=== PATIENT | female | born 1940 | race Caucasian/White ===

== ENCOUNTER → 2017-12-11 | Outpatient (CLI) | payer MEDICARE, OTHER ==
--- NOTE | 2017-12-11 20:36 | US ---
EXAM DESCRIPTION: Breast,Right: Ultrasound CLINICAL HISTORY: 77 years[address] calcifications ON CT from outside imaging facility. COMPARISON: Digital 3-D tomosynthesis diagnostic bilateral breast on this visit. TECHNIQUE: Transcutaneous scanning of the upper outer quadrant of the right breast utilizing two-dimensional and Doppler modes. Scanning performed by the neon sign worker and Dr. Patel. FINDINGS: Scanning at the 10:00 position of the right breast, 6 cm from the nipple. Hypoechoic mass measuring 4.4 x 4.5 mm. Minimal posterior enhancement. Parallel orientation. No skin changes. No discrete solid mass or cyst. No parenchymal edema. Surrounding tissue is mostly dense fibroglandular tissue with minimal fatty tissue. IMPRESSION: 1. Bi-Rads Category 2: Benign. 2. Please refer to bilateral diagnostic 3-D tomosynthesis mammographic examination and report on this visit. The FINDINGS and the follow-up plan were reviewed in person with the patient after the examination. Written communication explaining the IMPRESSION and follow-up will be mailed to the patient and referring care provider. Electronically signed by: Kar Patel MD 12/11/2017 8:35 PM PSYCHIATRIC TECHNICIAN Workstation: [id number]
--- NOTE | 2017-12-12 08:30 | MAM ---
EXAM DESCRIPTION: 3D Diagnostic, Bilateral: Digital Mammography CLINICAL HISTORY: [address] years[address] ON [address] SCAN . Soreness around left nipple. Sister with breast cancer. Remote family history of breast cancer. Postmenopausal. Currently on HRT. Bilateral cyst aspirations. Prior left breast benign biopsy.. COMPARISON: Prior CT scan is not available. Right breast targeted ultrasound following this examination. Prior report from CT scan at outside facility is available. TECHNIQUE: Bilateral CC LM MLO projection full-field images, 3-D tomosynthesis digital mammographic technique. Also bilateral synthesized CC MLO LM full-field images. CAD not utilized. FINDINGS: The breast parenchymal density pattern is: Heterogeneously dense breast tissue, which may obscure small masses. No skin thickening or nipple retraction bilateral coarse calcifications. Some calcifications have central radiolucency. Also bilateral microcalcifications. Focal asymmetry at the 932 1000 clock position of the middle third of the right breast approximately 6 cm from the nipple. Appears to be associated with microcalcifications. No mammographic lesions around the left nipple.. No focal, stellate mass or density, focal asymmetry , and no suspicious microcalcifications left breast. ULTRASOUND: Scanning at the 10:00 position of the right breast, 6 cm from the nipple. Hypoechoic mass measuring 4.4 x 4.5 mm. Minimal posterior enhancement. Parallel orientation. No skin changes. No discrete solid mass or cyst. No parenchymal edema. Surrounding tissue is mostly dense fibroglandular tissue with minimal fatty tissue. Small cyst abutting the left nipple otherwise unremarkable with no calcifications or discrete solid mass. IMPRESSION: BI-RADS CATEGORY: 2 - BENIGN FINDINGS. FOLLOW UP: Return to routine digital bilateral screening, one year interval from November 2017. Written communication explaining the IMPRESSION and follow-up, will be mailed to the patient and referring health care provider. According to the [employer], yearly mammograms are recommended starting at age 40 and continuing as long as a woman is in good health. Any breast change noted on a breast self-exam should be reported promptly to the patient's healthcare provider. Breast MRI is recommended for women with an approximately 20-25% or greater lifetime risk of breast cancer, including women with a strong family history of breast or ovarian cancer and women who have been treated for Hodgkin's disease. A negative mammographic report should not delay tissue diagnosis in patients with significant clinical history or physical findings. Extremely dense breast tissue limits the sensitivity of digital mammography. Electronically signed by: Kar Patel MD 12/12/2017 8:28 AM [facility]
== END ==
LOC: MAMMO 09:49
DX: R92.1 Mammographic calcification found on diagnostic imaging of breast (principal)
CPT/HCPCS: 76641; 77066; G0279

== ENCOUNTER 2020-08-27 05:52 | Inpatient (IN) | payer MEDICARE, OTHER ==
--- NOTE | 2020-08-27 06:59 | ED.PDOC ---
History of Present Illness - General Source: patient, RN notes reviewed, Vital Signs reviewed, long-term records Exam Limitations: no limitations - History of Present Illness Initial Comments: Patient is an 80-year-old white female who presents in transfer from an outside facility accepted by Tal Buchanan NP. Patient had recently fractured her left hip and was in rehab. Patient was noted to spike a fever and when tested for Covid was found to be positive. Patient was transferred here per standing agreement. Patient's only complaint at this time is mild fever and body aches. She denies any other symptoms. Timing/Duration: 24 hours Severity: mild Improving Factors: nothing Worsening Factors: nothing Associated Symptoms: fever/chills, other - Body aches <Abdiaziz Angeles - Last Filed: 08/27/20 06:57> <Tomasa Vasquez - Last Filed: 08/27/20 09:19> - General Chief Complaint: General Stated Complaint: COVID+,fever,headache,bodyaches Time Seen by Provider: 08/27/20 06:12 - History of Present Illness Allergies/Adverse Reactions: Allergies NO KNOWN ALLERGY Allergy (Verified 08/27/20 06:36) Review of Systems - Review of Systems Constitutional: States: see HPI, fever. Denies: chills, malaise, weakness EENTM: States: no symptoms reported. Denies: eye pain, blurred vision, double vision Respiratory: States: no symptoms reported. Denies: cough, short of breath Cardiology: States: no symptoms reported. Denies: chest pain, palpitations, syncope Gastrointestinal/Abdominal: States: no symptoms reported. Denies: abdominal pain, diarrhea, nausea, vomiting Genitourinary: States: no symptoms reported. Denies: dysuria, frequency Musculoskeletal: States: see HPI, joint pain. Denies: neck pain Skin: States: no symptoms reported. Denies: change in color, rash Endocrine: States: no symptoms reported. Denies: increased hunger, increased thirst, increased urine Hematologic/Lymphatic: States: no symptoms reported. Denies: blood clots, easy bleeding All other Systems: No Change from Baseline <Abdiaziz Angeles - Last Filed: 08/27/20 06:57> Past Medical History (General) - Patient Medical History Hx Seizures: No Hx Stroke: No Hx Dementia: No Hx Asthma: No Hx of COPD: Yes Hx Cardiac Disorders: Yes - AFib Hx Congestive Heart Failure: Yes Hx Pacemaker: No Hx Hypertension: Yes Hx Thyroid Disease: Yes Hx Diabetes: Yes Hx Gastroesophageal Reflux: Yes Hx Renal Disease: Yes - chronic kidney disease Hx Cancer: No Hx of HIV: No Hx Hepatitis C: No Hx MRSA: No Surgical History: Hysterectomy - Vaccination History Hx Tetanus, Diphtheria Vaccination: Yes Hx Influenza Vaccination: Yes - Social History Hx Tobacco Use: No Hx Alcohol Use: No <Abdiaziz Angeles - Last Filed: 08/27/20 06:57> Family Medical History - Family History Mother Family History: Unknown <Abdiaziz Angeles - Last Filed: 08/27/20 06:57> Physical Exam - Physical Exam General Appearance: Alert, Comfortable, Well Developed, Well Groomed, Well Hydrated, Well Nourished Eye Exam: bilateral normal Ears, Nose, Throat: hearing grossly normal, normal pharynx Neck: non-tender, full range of motion, supple Respiratory: chest non-tender, lungs clear, normal breath sounds, no respiratory distress, no accessory muscle use Cardiovascular/Chest: normal peripheral pulses, regular rate, rhythm, no edema, no gallop, no JVD, no murmur Peripheral Pulses: radial,right: 2+, radial,left: 2+ Gastrointestinal/Abdominal: normal bowel sounds, non tender, soft Back Exam: normal inspection, no CVA tenderness, no vertebral tenderness Extremity: no calf tenderness, other - Patient with mild tenderness to palpation of the left hip. Neurologic: pharmaceutical laboratory technician II-XII nml as tested, no motor/sensory deficits, alert, normal mood/affect, oriented x 3 Skin Exam: normal color, warm/dry Lymphatic: no adenopathy <Abdiaziz Angeles - Last Filed: 08/27/20 06:57> - Physical Exam Comments: Vital Signs - 24 hr 08/27/20 08/27/20 08/27/20 05:55 06:00 06:30 Temperature 100.0 F H Pulse Rate [ 79 71 monitor] Respiratory 20 20 18 Rate Blood Pressure 106/51 89/42 [Left Arm] O2 Sat by Pulse 95 96 Oximetry 08/27/20 08/27/20 08/27/20 07:30 08:00 08:30 Temperature 97.4 F L 97.5 F L Pulse Rate [ 101 H 69 73 monitor] Respiratory 20 16 18 Rate Blood Pressure 80/48 93/59 100/59 [Left Arm] O2 Sat by Pulse 92 L Oximetry <Tomasa Vasquez - Last Filed: 08/27/20 09:19> Progress - Progress Progress: Differential diagnosis: Pneumonia, COVID-19, influenza, sepsis among others. 08/27/20 07:00 Patient's lab work and x-ray readings are pending. Patient will be handed off to the oncoming physician, Dr. Vasquez. Abdiaziz Angeles M.D. #[id number] <Abdiaziz Angeles - Last Filed: 08/27/20 06:57> - Progress Progress: 08/27/20 09:16 The patient is a 80-year-old female sent over from [facility] secondary to acute coronavirus infection. The patient has borderline hypoxia however she is likely always borderline hypoxic due to her COPD. The patient is being given supplemental oxygen primarily at low flow for symptomatic relief only. She is alert and cooperative. No evidence of obvious distress. CT scans of the chest abdomen pelvis are reassuring. No evidence of any pulmonary embolus. She is apparently already taking Xarelto secondary to the hip surgery. White blood cell count is reassuring. The patient is being given a dose of IV dexamethasone here. She also had blood and sputum cultures done. Given the initial report of the chest x-ray Rocephin and azithromycin were also started. Given the patient's advanced age and comorbidities she is going to be treated as an inpatient for this process. Additionally the patient does have low blood pressures she falls asleep. This is apparently not new and has been well- documented at [facility]. This is likely multifactorial including largely due to sedating type medications that she takes at night. She did receive a 500 cc fluid bolus here which did help a little bit. Blood pressures normalized when she wakes up. Admit for continued care and monitoring. Obviously she is positive for coronavirus and appropriate precautions will be taken. tomasa vasquez [id number] - Results/Orders Results/Orders: CTA of the chest shows no evidence of any pulmonary embolus or large vessel acute pathology. Lung valencia are consistent with viral infection. No large lobar consolidative pneumonia. CT scan of abdomen pelvis with contrast shows no evidence of acute pathology otherwise. Chest x-ray shows what may be a small lingular and left lower lobe infiltrate. Laboratory Results - last 24 hr 08/27/20 08/27/20 08/27/20 06:22 06:22 06:22 WBC 6.9 RBC 2.85 L Hgb 8.0 L Hct 25.5 L MCV 89.7 MCH 28.1 MCHC 31.4 L RDW 18.8 H Plt Count 275 MPV 7.0 L Absolute Neuts (auto) 4.60 Absolute Lymphs (auto) 1.30 Absolute Monos (auto) 0.90 H Absolute Eos (auto) 0.10 Absolute Basos (auto) 0.00 Neutrophils % 65.9 Lymphocytes % 18.6 L Monocytes % 13.5 H Eosinophils % 1.4 Basophils % 0.6 PTT (SP) 34.6 H Fibrinogen 346 D-Dimer, Quantitative 2450.0 H* Sodium 136 Potassium 4.3 Chloride 101 Carbon Dioxide 26 Anion Gap 13.3 BUN 21 H Creatinine 1.17 BUN/Creatinine Ratio 17.9 Random Glucose 85 Serum Osmolality 274.2 L Calcium 8.1 L Magnesium 1.6 L Total Bilirubin 0.7 AST 19 ALT 9 L Alkaline Phosphatase 96 LD Total 192 H Creatine Kinase 25 L Troponin I C-Reactive Protein 8.7 H* Serum Total Protein 5.7 L Albumin 2.9 L Globulin 2.8 Albumin/Globulin Ratio 1.0 L 08/27/20 06:22 WBC RBC Hgb Hct MCV MCH MCHC RDW Plt Count MPV Absolute Neuts (auto) Absolute Lymphs (auto) Absolute Monos (auto) Absolute Eos (auto) Absolute Basos (auto) Neutrophils % Lymphocytes % Monocytes % Eosinophils % Basophils % PTT (SP) Fibrinogen D-Dimer, Quantitative Sodium Potassium Chloride Carbon Dioxide Anion Gap BUN Creatinine BUN/Creatinine Ratio Random Glucose Serum Osmolality Calcium Magnesium Total Bilirubin AST ALT Alkaline Phosphatase LD Total Creatine Kinase Troponin I 0.04 C-Reactive Protein Serum Total Protein Albumin Globulin Albumin/Globulin Ratio <Tomasa Vasquez - Last Filed: 08/27/20 09:19> Departure - Departure Time of Disposition: 07:01 Diet: resume usual diet Activity: as per physical therapy <Abdiaziz Angeles - Last Filed: 08/27/20 06:57> <Tomasa Vasquez - Last Filed: 08/27/20 09:19> - Departure Clinical Impression: COVID-19, COPD mixed type Fever Qualifiers: Fever type: unspecified Qualified Code(s): R50.9 - Fever, unspecified Disposition: Admit Patient Condition: Poor Departure Forms: ED Discharge - Pt. Copy, Patient Portal Self Enrollment Referrals: ANDRÉS MANRIQUE [Primary Care Provider] - 1-2 Weeks Decision To Admit - Decistion To Admit Decision to Admit Reason: Medical Nature Decision to Admit Date: 08/27/20 Decision to Admit Time: 09:19 <Tomasa Vasquez - Last Filed: 08/27/20 09:19>
--- NOTE | 2020-08-27 07:12 | RAD ---
CHEST, ONE VIEW XR CLINICAL HISTORY: cough COMPARISON: None. TECHNIQUE: AP Chest. FINDINGS: Patchy infiltrates in the left lower lobe and lingula. Right lung is clear. Lungs are hyperinflated. Heart is upper normal in size. Minimal aortic atherosclerosis. There is biapical pleural thickening. Left chest wall dual-lead pacemaker is intact. IMPRESSION: 1. Left lower lobe and lingula infiltrates. Electronically signed by: Jessica Ga DO 08/27/2020 7:10 AM CDT
[2020-08-27] MEDS ORDERED: SODIUM CHLORIDE 0.9% 500ML 500 ML ONE (07:34)
[2020-08-27] MEDS ORDERED: cefTRIAXone SODIUM 1 GM in SODIUM CHL 0.9% 50ML MIN-BAG+ 50 ML IVPB ONE (08:10)
[2020-08-27] MEDS ORDERED: DEXAMETHASONE INJ 4 MG/ML VIAL IV ONE (08:11)
[2020-08-27] MEDS ORDERED: AZITHROMYCIN IV 500 MG in SODIUM CHLORIDE 0.9% 250ML 250 ML IVPB ONE (08:11)
[2020-08-27] MEDS ORDERED: ACETYLCYSTEIN 20 % 6,000 MG/30 ML VIAL PO ONE (08:11)
--- NOTE | 2020-08-27 09:04 | CT ---
EXAM DESCRIPTION: Abdomen/Pelvis w/Contrast (accession [id number]), CTA Chest (accession [id number]) CLINICAL HISTORY: 80 years Female, covid, immobnilization, ddimer, low bp TECHNIQUE: This exam was performed according to our departmental dose-optimization program, which includes automated exposure control, adjustment of the mA and/or kV according to patient size and/or use of iterative reconstruction technique. This examination was performed according to a CT angiographic (CTA) protocol with 3D post-processing. This involves 3D reconstructions, MIPS, volume rendered images and/or shaded surface rendering. COMPARISON: None at time of initial interpretation. FINDINGS: The thyroid gland is unremarkable. Left chest wall pacemaker. No axillary adenopathy. Normal caliber thoracic aorta. Cardiomegaly. No pericardial effusion. Moderate hiatal hernia. No mediastinal adenopathy. No pulmonary embolus. Trace bilateral pleural effusions. No pneumothorax. Multifocal bilateral peripheral groundglass airspace disease. No focal consolidation. No suspicious pulmonary nodule. Thickening of the mid to distal esophagus. No focal hepatic lesion. No biliary dilatation. The gallbladder is unremarkable. The portal vein is patent. The spleen, pancreas and adrenal glands are unremarkable. Symmetric renal parenchymal enhancement. No hydronephrosis. No urolithiasis. Unremarkable bladder. Scattered colonic diverticula without focal inflammatory change. No evidence of bowel obstruction. No findings to suggest appendicitis. No adenopathy. No focal fluid collection. No free air. Normal caliber abdominal aorta. No acute or suspicious osseous abnormality. Scattered degenerative changes present. IMPRESSION: 1. Multifocal bilateral peripheral groundglass airspace disease which is most likely infectious. Consider viral etiologies. 2. Trace bilateral pleural effusions. 3. Thickening of the mid to distal esophagus. Recommend endoscopy when clinically indicated. Electronically signed by: Hira Hester MD 08/27/2020 9:02 AM CDT
[2020-08-27] MEDS ORDERED: SODIUM CHLORIDE 0.9% 500ML 500 ML IVS ONE (09:46)
--- NOTE | 2020-08-27 10:02 | HP ---
SUPERVISING PHYSICIAN: Robbie De Dios MD CHIEF COMPLAINT: Acute coronavirus infection with hypoxia. HISTORY OF PRESENT ILLNESS: Ms. Gutierrez is an 80-year-old female patient that has been in the Swing Bed Program at [facility]. She sustained a fractured hip back in June and underwent open reduction internal fixation done by Dr. Cortés. She was doing well on the Swing Bed Program, but started having a fever yesterday and some mild hypoxia on room air. Dr. Kar Pringle requested the patient be transferred to [facility] for admission for treatment of COVID infection as they are unable to accommodate patients for treatment of COVID. She was sent to the Emergency Room for evaluation as she does also have a history of multiple comorbidities including chronic obstructive pulmonary disease, congestive heart failure, chronic atrial fibrillation, hypertension, chronic kidney disease, hypothyroidism, Parkinson's and recent complication from diverticulitis and abscess formation that was treated with surgery and antibiotics. She tested positive for COVID infection at [facility]. On examination in the Emergency Room, she was found to be stable showing saturations initially in the ER of 95% on 2 liters nasal cannula. She was a little hypotensive with initial blood pressure of 80/48. She was febrile with a temperature of 100.0. She was given IV fluids in the ER. Additional workup included CT of the abdomen and pelvis which demonstrated multifocal bilateral peripheral ground glass airspace disease. Lab on initial workup showed she was mildly anemic with hemoglobin of 8. Lymphocyte count was low. Coagulation studies showed D-dimer of 2450 with PTT of 34.6. Chemistries showed C-reactive protein of 8.7, creatinine 1.17. Magnesium a little low at 1.6. She was given initial doses of Decadron, Rocephin and azithromycin in the ER and is now going to be admitted for further treatment of COVID pneumonitis. At time of admission, she was in stable condition. PAST MEDICAL HISTORY: 1. Chronic obstructive pulmonary disease. 2. Chronic diastolic congestive heart failure. 3. Intermittent atrial fibrillation on Xarelto. 4. Hypertension. 5. Back pain with previous underlying failed back surgery, lumbar disc disease and osteoarthritis. 6. Chronic kidney disease. 7. Hypothyroidism. 8. Parkinson's. 9. History of diverticulitis with complications due to infection and abscess formation requiring surgery and antibiotics. PAST SURGICAL HISTORY: 1. Laparoscopic procedure for small bowel obstruction. 2. Exploratory laparotomy. 3. Hysterectomy. 3. Coronary artery stent. 4. Open reduction internal fixation of hip fracture in 2020. HOME MEDICATIONS: 1. Citalopram 20 mg daily. 2. Allopurinol 300 mg daily. 3. Ativan 1 mg q.8h. as needed. 4. Gabapentin 200 mg t.i.d. 5. Tramadol 50 mg q.4h. p.r.n. 6. Xarelto 10 mg daily. 7. Senokot 8.6 mg daily. 8. Requip 3 mg at bedtime. 9. Prednisone 5 mg daily. 10. Protonix 40 mg daily. 11. [place] 10/325 as needed q.6h. 12. Zaroxolyn 5 mg p.r.n. 13. Macrodantin 100 mg daily. 14. Lopressor 25 mg b.i.d. 15. Lunesta 2 mg at bedtime. 16. Flexeril 10 mg p.r.n. q.8h. as needed. 17. Albuterol nebulizers 2.5 mg nebulized q.6h. 18. MS Contin 15 mg b.i.d. ALLERGIES: NO KNOWN DRUG ALLERGIES. FAMILY HISTORY: Noncontributory. SOCIAL HISTORY: The patient lives in [place], [place]. She is . She has no history of alcohol, tobacco or illicit drug use. REVIEW OF SYSTEMS: CONSTITUTIONAL: Positive for general malaise, fevers, weakness. HEENT: Negative for headaches, sore throats, earaches, nasal congestion, vision changes. RESPIRATORY: Positive for productive cough with some mild shortness of breath. Denies any wheezing. CARDIOVASCULAR: Negative for chest pain, palpitations, tachycardia or syncopal episodes. GASTROINTESTINAL: Negative for nausea, vomiting, diarrhea or abdominal pain. GENITOURINARY: Negative for dysuria, hematuria, polyuria. MUSCULOSKELETAL: As noted in history of present illness with hip surgery. SKIN: Negative for lesions, rashes, moles or unexplained changes. ENDOCRINE: Negative for increased hunger, thirst or urination. NEUROLOGIC: Negative for ataxia, seizures. Positive for generalized weakness. No focal motor deficits, no syncopal episodes. HEMATOLOGIC: Negative for easy bruising, unexplained bleeding, blood clots or transfusion reactions. PHYSICAL EXAMINATION: VITAL SIGNS: On admission to the Emergency Room from initial evaluation showed she was febrile with temperature 100.0, pulse 79, blood pressure 106/51, respirations 20, saturation 95% on room air, blood pressure 80/48. She was tachycardic at 101. GENERAL: The patient is in no acute distress. She is resting, looks to be comfortable. She is alert. HEENT: Tympanic membranes clear bilaterally. Oropharynx is pink, moist without any lesions. NECK: Supple, nontender with full range of motion. No jugular venous distention noted. RESPIRATORY: Lung sounds are fairly clear. I did not hear any obvious rhonchi, wheezes or rales. CARDIOVASCULAR: Regular rate and rhythm without any appreciable murmurs, gallops, or rubs. ABDOMEN: Soft, nontender. Positive bowel sounds. BACK: No CVA or vertebral tenderness. EXTREMITIES: There is some mild tenderness over the incision site over left hip with no signs of infection or drainage. Distal pulses strong. Capillary refill brisk. NEUROLOGIC: Cranial nerves II-XII are grossly intact. Facial features are symmetrical. Extraocular movements are within normal limits. There is no nystagmus noted. The patient is alert and oriented times three. LABORATORY: CBC showed white count 6,900, hemoglobin 8, hematocrit 25.5, platelet count 275,000. Differential shows no left shift, but low percent of lymphocytes. Coagulation studies did reveal D-dimer of 2450. Chemistries showed normal electrolytes. Creatinine 1.17. Glucose initially 8.5, calcium 8.1, magnesium a little low at 1.6. Liver functions within normal limits. C- reactive protein was elevated at 8.7. Troponin 0.04. Urinalysis was pending. MICROBIOLOGY: Blood cultures negative. Sputum culture pending. Nasal swab for COVID was positive. RADIOLOGY: Chest x-ray initially in the Emergency Room per radiologic interpretation shows left lobe lingula infiltrates. This was followed up with the chest/thorax and per radiologic interpretation showed multifocal bilateral peripheral groundglass airspace disease. CT of the abdomen and pelvis showed thickening of the mid to distal esophagus. No other acute findings were noted. ASSESSMENT: 1. COVID pneumonia, bilateral. 2. Exacerbation of chronic obstructive pulmonary disease secondary to #1. 3. Chronic diastolic congestive heart failure with no signs of exacerbation with no echocardiogram available on admission. 4. History of atrial fibrillation with the patient showing sinus rhythm in the Emergency Room with the patient on chronic Xarelto. 5. Chronic hypertension, but hypotensive on admission. 6. Sepsis secondary to #1 with the patient being tachycardic on hypotensive on admission. 7. History of chronic kidney disease with creatinine levels within normal limits. 8. Hypothyroidism on supplementation. 9. History of Parkinson's. PLAN: Ms. Gutierrez is going to be admitted for initiation of treatment for COVID pneumonia. She will be in airborne isolation and treated with Rocephin, azithromycin, Decadron, Remdesivir and oxygen. We will repeat labs per protocol. I would anticipate her length of stay to be at 2 to 3 days. She will also need a physical therapy evaluation considering she was just in Swing Bed at [facility]. Until the patient can transition to outpatient management, we will continue to monitor and treat as needed. #[id number] [facility]
[2020-08-27] MEDS ORDERED: SODIUM CHLORIDE 0.9% (FLUSH) 10 ML SYG IV PRN (12:01)
[2020-08-27] MEDS ORDERED: ONDANSETRON INJ 4 MG/2 ML VIAL IV PRN (12:01)
[2020-08-27] MEDS ORDERED: ACETAMINOPHEN 325 MG TAB PO PRN (12:01)
[2020-08-27] MEDS ORDERED: GLUCAGON INJ 1 MG VIAL SUBCU PRN (12:01)
[2020-08-27] MEDS ORDERED: DEXTROSE 50% 25 GM/50 ML SYG IV PRN (12:01)
[2020-08-27] MEDS ORDERED: ALBUTEROL INHALER 64 PUFF/8GM INH PRN (12:09)
[2020-08-27] MEDS ORDERED: REMDESIVIR 200 MG in SODIUM CHLORIDE 0.9% 250ML 250 ML IVPB ONE (12:10)
[2020-08-27] MEDS ORDERED: HYDROcodone 10MG/APAP 325MG 1 EA TAB PO PRN (12:12)
[2020-08-27] MEDS: METOPROLOL TARTRATE 25 MG TAB PO SCH ×2 (12:52→21:07)
[2020-08-27] MEDS: CITALOPRAM HBR 20 MG TAB PO SCH (12:52)
[2020-08-27] MEDS: ALLOPURINOL 300 MG TAB PO SCH (12:52)
[2020-08-27] MEDS: IV SET AND CAP CHANGE INJ INJ SCH (12:53)
[2020-08-27] MEDS: ALBUTEROL INHALER 64 PUFF/8GM INH SCH ×2 (15:15→20:46)
[2020-08-27] MEDS: GABAPENTIN 100 MG CAP PO SCH ×2 (15:20→21:08)
[2020-08-27] MEDS: INSULIN LISPRO 100 UNITS/ML PEN SUBCU SCH ×2 (18:37→21:36)
[2020-08-27] MEDS ORDERED: MORPHINE ER 15 MG TAB ONE (19:12)
[2020-08-27] MEDS: MORPHINE ER 15 MG TAB PO SCH (21:07)
[2020-08-27] MEDS: TEMAZEPAM 15 MG CAP PO PRN (21:36)
[2020-08-28] MEDS: ALBUTEROL INHALER 64 PUFF/8GM INH SCH ×6 (00:30→21:44)
[2020-08-28] MEDS: ESZOPICLONE 2 MG PO SCH ×2 (00:34→20:33)
[2020-08-28] MEDS ORDERED: PANTOPRAZOLE SODIUM IV 40 MG VIAL ONE (04:23)
[2020-08-28] MEDS: PANTOPRAZOLE SODIUM IV 40 MG VIAL IV SCH (06:12)
--- NOTE | 2020-08-28 06:17 | RAD ---
EXAM DESCRIPTION: X-ray single view chest. CLINICAL HISTORY: 80 years Female, Pneumonia COMPARISON: Chest x-ray and chest CT performed on 08/27/2020 TECHNIQUE: Single portable x-ray view of the chest performed on chest x-ray performed on 08/28/2020 FINDINGS: The lungs are well expanded. There is patchy airspace disease throughout the left lung which may be due to a combination of fibrosis and/or atelectasis. Inflammatory changes are not excluded. The right lung appears grossly clear on this study. There is no evidence of a pneumothorax. The cardiac silhouette is stable and grossly within normal limits. The mediastinal contours are normal. No acute osseous abnormality is identified. No focal soft tissue abnormalities are seen. Lines and tubes: There is a stable left subclavian bipolar pacemaker. IMPRESSION: 1. Patchy airspace disease throughout the left lung which may be due to a combination of fibrosis, atelectasis and/or inflammatory changes. 2. The right lung appears grossly clear on this examination. 3. Grossly stable left subclavian bipolar pacemaker. Electronically signed by: Misti Joe DO 08/28/2020 6:15 AM CDT
[2020-08-28] MEDS ORDERED: ACETAMINOPHEN 325 MG TAB PO ONE (08:58)
[2020-08-28] MEDS ORDERED: FUROSEMIDE INJ 40 MG/4 ML VIAL IV ONE (08:58)
[2020-08-28] MEDS ORDERED: diphenhydrAMINE HCL 50 MG/ML VIAL IV ONE (08:58)
[2020-08-28] MEDS ORDERED: SODIUM CHLORIDE 0.9% 500ML 500 ML IVS SCH (09:00)
[2020-08-28] MEDS: INSULIN LISPRO 100 UNITS/ML PEN SUBCU SCH ×4 (09:09→21:21)
[2020-08-28] MEDS: MORPHINE ER 15 MG TAB PO SCH ×2 (09:11→20:33)
[2020-08-28] MEDS: GABAPENTIN 100 MG CAP PO SCH ×3 (09:11→20:33)
[2020-08-28] MEDS: METOPROLOL TARTRATE 25 MG TAB PO SCH ×2 (09:11→20:33)
[2020-08-28] MEDS: CITALOPRAM HBR 20 MG TAB PO SCH (09:12)
[2020-08-28] MEDS: ALLOPURINOL 300 MG TAB PO SCH (09:12)
[2020-08-28] MEDS: DEXAMETHASONE INJ 10 MG/ML VIAL IV SCH (09:12)
[2020-08-28] MEDS: RIVAROXABAN 10 MG TAB PO SCH (09:12)
[2020-08-28] MEDS: cefTRIAXone SODIUM 1 GM in SODIUM CHL 0.9% 50ML MIN-BAG+ 50 ML IVPB SCH (09:13)
[2020-08-28] MEDS: BIFIDOBACTERIUM INFANTIS 4 MG CAP PO SCH (09:13)
[2020-08-28] MEDS: AZITHROMYCIN IV 500 MG in SODIUM CHLORIDE 0.9% 250ML 250 ML IVPB SCH (10:30)
[2020-08-28] MEDS: REMDESIVIR 100 MG in SODIUM CHLORIDE 0.9% 250ML 250 ML IVPB SCH (12:00)
[2020-08-28] MEDS: SENNOSIDES 8.6 MG TAB PO SCH (17:09)
--- NOTE | 2020-08-28 18:48 | PN ---
SUPERVISING PHYSICIAN: Robbie De Dios MD DATE: 08/28/20 SUBJECTIVE: The patient is sitting in bed. She is still quite weak, but denies that she has had any blood transfusion in the last few years although she had one several years ago. We discussed she would be getting blood due to her low H&H. She still is short of breath with exertion, but does feel somewhat better. She denies chest pain, nausea or vomiting. OBJECTIVE: VITAL SIGNS: Temperature 98.4, heart rate 65, blood pressure 135/78, respiratory rate 18, O2 saturation 95% on room air. RESPIRATORY: Diminished breath sounds throughout with a few scattered rhonchi. CARDIAC: Regular rate and rhythm. GASTROINTESTINAL: Abdomen is soft, nondistended, nontender. Bowel sounds are positive. NEUROLOGIC: Awake, alert and oriented times three. LABORATORY: WBCs 4,800, hemoglobin 7.7, hematocrit 23.9. PTT 34.5, D-dimer 1,360. Electrolytes are basically within normal limits with the exception of her calcium is slightly low at 8.1. BUN 26, creatinine 1.02. LD 193. C- reactive protein slightly worse at 9.3. Preliminary show no growth after 24 hours. Sputum culture pending. Chest x-ray shows 1) Patchy airspace disease throughout the left lung which may be due to a combination of fibrosis, atelectasis and/or inflammatory changes. 2) The right lung appears grossly clear on this examination. 3) Grossly stable subclavian bipolar pacemaker. All other labs and films have been reviewed via the EMR. ASSESSMENT: 1. COVID pneumonia, bilateral. 2. Exacerbation of chronic obstructive pulmonary disease. 3. Chronic diastolic congestive heart failure with no signs of exacerbation. There is no echocardiogram to review. 4. History of atrial fibrillation on chronic Xarelto. 5. Chronic hypertension. 6. Sepsis secondary to #1. 7. History of chronic kidney disease with creatinine levels at baseline. 8. Hypothyroidism. 9. History of Parkinson's. PLAN: We will continue present supportive care. She is presently getting 2 units of packed red blood cells. I have ordered COVID lab for in the morning and we will continue her present COVID treatment. Her prior records from [facility] show she has had hemoglobins of 8.4, 9.3 and 8.4 over the last several months while being in Swing Bed. We will monitor her H&H closely after transfusion. We will continue to monitor the patient closely and follow as needed. [facility][id number] [facility]
[2020-08-28] MEDS: TEMAZEPAM 15 MG CAP PO PRN (20:33)
[2020-08-29] MEDS: ALBUTEROL INHALER 64 PUFF/8GM INH SCH ×6 (00:36→22:00)
[2020-08-29] MEDS: PANTOPRAZOLE SODIUM IV 40 MG VIAL IV SCH (06:06)
--- NOTE | 2020-08-29 07:26 | RAD ---
: 1940. Technique: Portable AP upright chest x-ray. Comparison: August 28, 2020 chest x-ray and August 27, [address] Clinical history: covid PNA. Heart size: Heart size is within normal limits. Left transvenous pacemaker. Lungs: Moderate infiltrates mainly on the left in the mid and lower thorax essentially unchanged.. Pleura: No appreciable pleural effusion. No pneumothorax. Mediastinum and renny: Unremarkable. Skeletal: Unremarkable. Support tubings: None. Impression: 1. Unchanged asymmetric pneumonia. Electronically signed by: Homer Badillo MD 08/29/2020 7:24 AM CDT
[2020-08-29] MEDS: INSULIN LISPRO 100 UNITS/ML PEN SUBCU SCH ×4 (07:49→20:55)
[2020-08-29] MEDS: MORPHINE ER 15 MG TAB PO SCH ×2 (07:50→20:46)
[2020-08-29] MEDS: RIVAROXABAN 10 MG TAB PO SCH (07:50)
[2020-08-29] MEDS: BIFIDOBACTERIUM INFANTIS 4 MG CAP PO SCH (07:50)
[2020-08-29] MEDS: CITALOPRAM HBR 20 MG TAB PO SCH (07:51)
[2020-08-29] MEDS: ALLOPURINOL 300 MG TAB PO SCH (07:51)
[2020-08-29] MEDS: METOPROLOL TARTRATE 25 MG TAB PO SCH ×2 (07:51→20:47)
[2020-08-29] MEDS: GABAPENTIN 100 MG CAP PO SCH ×3 (07:51→20:45)
[2020-08-29] MEDS: cefTRIAXone SODIUM 1 GM in SODIUM CHL 0.9% 50ML MIN-BAG+ 50 ML IVPB SCH (07:51)
[2020-08-29] MEDS: DEXAMETHASONE INJ 10 MG/ML VIAL IV SCH (07:52)
[2020-08-29] MEDS: AZITHROMYCIN IV 500 MG in SODIUM CHLORIDE 0.9% 250ML 250 ML IVPB SCH (08:32)
[2020-08-29] MEDS ORDERED: POTASSIUM CHLORIDE 20 MEQ TAB PO ONE (09:46)
[2020-08-29] MEDS: SENNOSIDES 8.6 MG TAB PO SCH (11:10)
[2020-08-29] MEDS: REMDESIVIR 100 MG in SODIUM CHLORIDE 0.9% 250ML 250 ML IVPB SCH (11:30)
[2020-08-29] MEDS: TEMAZEPAM 15 MG CAP PO PRN (20:47)
[2020-08-29] MEDS: ESZOPICLONE 2 MG PO SCH (20:47)
--- NOTE | 2020-08-29 21:05 | PN ---
SUPERVISING PHYSICIAN: Robbie De Dios M.D. DATE: 08/29/20 SUBJECTIVE: The patient is sitting on the side of her bed talking to family. She says she feels much better. Has minimal shortness of breath. No nausea or vomiting or chest pain. OBJECTIVE: VITAL SIGNS: Temperature 98, heart rate 73, blood pressure 133/84, respiratory rate 18, O2 saturation 94% on room air. RESPIRATORY: Diminished breath sounds but otherwise clear to auscultation. CARDIAC: Regular rate and rhythm. NEUROLOGIC: She is awake, alert and oriented times three. LABORATORY: WBCs are 6.7, hemoglobin 10.8, hematocrit 33.2. PTT is 38, D-dimer is 875. Electrolytes are basically within normal limits with the exception of her magnesium is slightly low at 1.7 and calcium is 8.1, potassium is slightly low at 3.4. BUN 26, creatinine 1.06. MICROBIOLOGY: Preliminary blood cultures show now growth after 48 hours. Sputum culture is pending. Stool for occult blood is negative times 2. RADIOLOGY: Chest x-ray shows unchanged asymmetric pneumonia. All other labs and films have been reviewed via the EMR. ASSESSMENT: 1. COVID pneumonia, bilateral. 2. Exacerbation of chronic obstructive pulmonary disease. 3. Chronic diastolic congestive heart failure with no signs of exacerbation. There is no echocardiogram to review. 4. History of atrial fibrillation on chronic Xarelto. 5. Chronic hypertension. 6. Sepsis secondary to #1. 7. History of chronic kidney disease with creatinine levels at baseline. 8. Hypothyroidism. 9. History of Parkinson's. PLAN: We will continue present supportive care. I will order a CBC, CMP and COVID lab tomorrow. She received some potassium and magnesium supplementation today. Will also monitor her H&H closely. Will follow and treat as needed. #[id number] [facility]
[2020-08-30] MEDS: ALBUTEROL INHALER 64 PUFF/8GM INH SCH ×6 (04:30→21:44)
[2020-08-30] MEDS: PANTOPRAZOLE SODIUM IV 40 MG VIAL IV SCH (05:33)
[2020-08-30] MEDS: INSULIN LISPRO 100 UNITS/ML PEN SUBCU SCH ×3 (08:20→17:37)
[2020-08-30] MEDS: GABAPENTIN 100 MG CAP PO SCH ×2 (08:21→16:15)
[2020-08-30] MEDS: DEXAMETHASONE INJ 10 MG/ML VIAL IV SCH (08:21)
[2020-08-30] MEDS: RIVAROXABAN 10 MG TAB PO SCH (08:22)
[2020-08-30] MEDS: MORPHINE ER 15 MG TAB PO SCH (08:22)
[2020-08-30] MEDS: ALLOPURINOL 300 MG TAB PO SCH (08:22)
[2020-08-30] MEDS: cefTRIAXone SODIUM 1 GM in SODIUM CHL 0.9% 50ML MIN-BAG+ 50 ML IVPB SCH (08:22)
[2020-08-30] MEDS: METOPROLOL TARTRATE 25 MG TAB PO SCH (08:22)
[2020-08-30] MEDS: CITALOPRAM HBR 20 MG TAB PO SCH (08:22)
[2020-08-30] MEDS: SENNOSIDES 8.6 MG TAB PO SCH (08:23)
[2020-08-30] MEDS: AZITHROMYCIN IV 500 MG in SODIUM CHLORIDE 0.9% 250ML 250 ML IVPB SCH (08:23)
[2020-08-30] MEDS: BIFIDOBACTERIUM INFANTIS 4 MG CAP PO SCH (08:23)
[2020-08-30 11:02] VITALS: TEMP 97.8
[2020-08-30] MEDS: REMDESIVIR 100 MG in SODIUM CHLORIDE 0.9% 250ML 250 ML IVPB SCH (12:21)
[2020-08-30] MEDS: IV SET AND CAP CHANGE INJ INJ SCH (17:38)
[2020-08-30 17:42] VITALS: BP 160/75
--- NOTE | 2020-08-30 20:16 | PN ---
SUPERVISING PHYSICIAN: Robbie De Dios M.D. DATE: 08/30/20 SUBJECTIVE: The patient is sitting on the side of her bed and eating her meal. She has been weaned off her oxygen. She does say she feels better and has shortness of breath only with exertion. Denies nausea or vomiting, diarrhea or constipation. OBJECTIVE: VITAL SIGNS: Temperature 97.8, heart rate 76, blood pressure 140/82, respiratory rate 16, O2 saturation 94% on room air. RESPIRATORY: Diminished at the bases but otherwise clear to auscultation. CARDIAC: Regular rate and rhythm. NEUROLOGIC: She is awake, alert and oriented times three. LABORATORY: WBCs are 5.3, hemoglobin 11.6, hematocrit 35.9. She does have a left shift on her differential. D-dimer is 808. Electrolytes are basically within normal limits with the exception of her calcium slightly low at 7.7. LD 259, C-reactive protein 4.3. Preliminary blood cultures show no growth after 3 days. Sputum culture is pending. All other labs and films have been reviewed via the EMR. ASSESSMENT: 1. Bilateral COVID pneumonitis. 2. Exacerbation of chronic obstructive pulmonary disease. 3. Chronic diastolic heart failure with no signs of exacerbation. There is no echocardiogram to review. 4. History of atrial fibrillation on chronic Xarelto. 5. Chronic hypertension. 6. Sepsis secondary to #1. 7. History of chronic kidney disease with creatinine levels at baseline. 8. Hypothyroidism. 9. History of Parkinson's. PLAN: We will continue present supportive care. Most likely, the patient will be able to discharge tomorrow or the next day. We will need to find out a discharge plan as she was in Swing Bed at [facility] and they are not taking Covid positive patients at this time. She has actually been in their Swing Bed program for a couple of months but she may be able to go home from the hospital. I did consult [employer] for discharge planning. I did order routine Covid-19 lab and chest x-ray for in the morning. Will monitor her and treat as needed. #[id number] [facility]
[2020-08-30] MEDS ORDERED: IPRATROPIUM/ALBUTEROL 3 ML VIAL NEB PRN (20:54)
[2020-08-30] MEDS ORDERED: IPRATROPIUM/ALBUTEROL 3 ML VIAL NEB ONE ×2 (20:54→21:17)
[2020-08-30] MEDS ORDERED: FUROSEMIDE INJ 40 MG/4 ML VIAL IV ONE (21:03)
[2020-08-30] MEDS ORDERED: FUROSEMIDE INJ 40 MG/4 ML VIAL ONE (21:22)
[2020-08-30] MEDS ORDERED: SODIUM CHLORIDE 0.9% (FLUSH) 10 ML SYG ONE (21:40)
[2020-08-30] MEDS ORDERED: SUCCINYLCHOLINE CHLORIDE 200 MG/10 ML VIAL ONE (21:40)
--- NOTE | 2020-08-30 21:51 | RAD ---
EXAM DESCRIPTION: Chest,1 View 08/30/2020 9:47 PM CDT CLINICAL HISTORY: 80 years, Female, resp distress COMPARISON: 08/29/2020-08/27/2020, previous CTA performed 08/27/2020 FINDINGS: Single view of the chest was obtained portable. Prior films were compared. There has been interval significant progression of patchy areas of alveolar and interstitial opacity within the lower/mid lungs sparing only the lung apexes/upper lobes. Again there is a dual-lead pacemaker via left subclavian. The heart is in the upper normal size. The rest of the soft tissue and bony structures demonstrate to be unremarkable. IMPRESSION: WORSENING OF APPEARANCE OF THE LUNGS WITH INTERVAL PROGRESSION TO A OF BILATERAL CONFLUENT PATCHY AREAS OF ALVEOLAR/AIRSPACE OPACITY INVOLVING BOTH LUNGS SUGGESTING MULTILOBAR PNEUMONIA, COVID 19 PNEUMONIA SHOULD BE INCLUDED IN DIFFERENTIAL CORRELATE CLINICALLY. PACEMAKER IN PLACE. Electronically signed by: Jamaal Dixon MD 08/30/2020 9:49 PM CDT
--- NOTE | 2020-08-30 22:17 | RAD ---
EXAM DESCRIPTION: Chest,1 View 08/30/2020 10:14 PM CDT CLINICAL HISTORY: 80 years, Female, tube placement COMPARISON: 08/30/2020 performed at 9:36 PM. FINDINGS: Single view of the chest was obtained portable. Prior films were compared. There has been interval placement of an endotracheal tube in good position at approximately 3.5 cm from the jamel. There is improved aeration of the lungs. Remains the presence of a diffuse patchy areas of alveolar and interstitial airspace opacities mid/lower lung zones. The the heart is not enlarged. Again there is a dual-lead pacemaker via left subclavian. External EKG leads within the [id number] limits diagnosis. Questionable small left pleural effusion. IMPRESSION: ENDOTRACHEAL TUBE IN GOOD POSITION WITH IMPROVED AERATION ESPECIALLY AT THE LUNG BASES. OTHERWISE NO SIGNIFICANT INTERVAL CHANGE AREAS OF BILATERAL DIFFUSE AIRSPACE OPACITIES. Electronically signed by: Jamaal Dixon MD 08/30/2020 10:16 PM CDT
[2020-08-30] MEDS ORDERED: PROPOFOL 200 MG/20 ML VIAL IV ONE ×2 (22:31→22:42)
--- NOTE | 2020-08-30 22:47 | RAD ---
EXAM DESCRIPTION: Chest,1 View 08/30/2020 10:45 PM CDT CLINICAL HISTORY: 80 years, Female, placement of NG Tube COMPARISON: 08/30/2020 performed at 10:04 PM and 9:36 PM FINDINGS: Single view of the chest was obtained portable. Prior films were compared. Endotracheal tube is in good position. There has been interval placement of a nasogastric tube tip of the catheter within the body of the stomach in good position. Remains the presence of a diffuse patchy areas of alveolar and interstitial airspace opacities mid/lower lung zones. The the heart is not enlarged. Again there is a dual-lead pacemaker via left subclavian. External EKG leads within the [id number] limits diagnosis. Questionable small left pleural effusion. IMPRESSION: NG TUBE IN GOOD POSITION. OTHERWISE NO SIGNIFICANT INTERVAL CHANGE AREAS OF BILATERAL DIFFUSE AIRSPACE OPACITIES. Electronically signed by: Jamaal Dixon MD 08/30/2020 10:45 PM CDT
[2020-08-30] MEDS ORDERED: MIDAZOLAM INJ 5 MG/5 ML VIAL IV ONE (23:10)
[2020-08-30] MEDS ORDERED: ETOMIDATE INJECTION 2 MG/ML 20ML VIAL IV ONE (23:10)
[2020-08-30] MEDS ORDERED: MIDAZOLAM INJ 5 MG/5 ML VIAL ONE (23:10)
[2020-08-31] MEDS: ALBUTEROL INHALER 64 PUFF/8GM INH SCH (03:26)
[2020-08-31 03:35] VITALS: O2SAT 90
--- NOTE | 2020-08-31 08:12 | DS ---
SUPERVISING PHYSICIAN: Robbie De Dios MD DISCHARGE DIAGNOSIS: 1. Acute respiratory failure. 2. Bilateral COVID pneumonitis. 3. Exacerbation of chronic obstructive pulmonary disease. 4. Chronic diastolic heart failure with no signs of exacerbation. There is no echocardiogram to review. 4. History of atrial fibrillation on chronic Xarelto. 5. Chronic hypertension. 6. Sepsis secondary to COVID pneumonitis. 7. History of chronic kidney disease with creatinine levels at baseline. 8. Hypothyroidism. 9. History of Parkinson's. HISTORY OF PRESENT ILLNESS: This is an 80-year-old female patient that has been in the Swing Bed Program at [facility]. She sustained a fractured hip back in June and underwent open reduction and internal fixation done by Dr. Cortés in [place]. She was doing well on the Swing Bed Program, but started having a fever on the day prior to admission to the hospital. Dr. Kar Pringle requested the patient be transferred to our hospital due to positive COVID results. In the Emergency Room, she was evaluated and found to have multiple comorbidities including chronic obstructive pulmonary disease, congestive heart failure, chronic atrial fibrillation, hypertension, chronic kidney disease, hypothyroidism, Parkinson's and recent complication from diverticulitis and abscess formation that was treated with surgery and antibiotics. She tested positive for COVID infection at [facility]. In the Emergency Room, she was found to be hypotensive with initial blood pressure of 80/48. She had a temperature of 100.0 and demonstrated multifocal bilateral peripheral ground glass airspace disease. Initial lab studies showed hemoglobin of 8. Lymphocyte count was low. Coagulation studies showed D-dimer of 2450 with PTT of 34.6. Chemistries showed C-reactive protein of 8.7, creatinine 1.17. Magnesium 1.6. She was given Decadron, Rocephin and azithromycin and admitted for further treatment of COVID pneumonitis. Her vital signs were stable on admission. HOSPITAL COURSE: The patient was admitted to the hospital and started on the pneumonia guidelines including aggressive pulmonary hygiene and Rocephin and azithromycin. She was also started on the COVID protocol with Decadron, Remdesivir and oxygen. She continued on her Xarelto for DVT prophylaxis as well as PPI for ulcer prophylaxis. Her lab was closely monitored as well as her vital signs and clinical response. She progressively improved over the next several days although she was quite weak. Her hemoglobin dropped to 7.7 with hematocrit 23.9. Due to her history of recent hip surgery as well as her COVID pneumonitis, she was given 2 units of packed red blood cells. She progressively, but slowly improved and had actually being considered o be discharged. She had several weeks remaining on her Swing Bed admission at [facility], but because of her COVID pneumonitis, she was unable to return to [facility] since she was positive for COVID-19. Otherwise, she would have been discharged today. Earlier in the day, she was actually stable. Her vital signs were stable. Her lab had progressively improved, but this evening she became hypotensive and extremely short of breath. She was initially given some Lasix, but the patient's breathing deteriorated and Dr. De Dios, the ER physician, was called for intubation. She was intubated at the bedside and [facility] agreed to accept her in transfer. She was intubated without any issues and will be transferred via [facility] in stable condition on a respirator. LABORATORY: WBCs were 6.9 on admission, today are 5.3. Hemoglobin dropped to 7.7 and hematocrit 23.9. She was given 2 units of blood today and her hemoglobin and hematocrit were 11.6 and 35.9. PTT on admission was 34.6 and went up to 38.1. Initial D-dimer was 2450 and today was 808. Fibrinogen on admission was 346 and came down to 328. Electrolytes were basically within normal limits with the exception of her calcium was low at 7.7. LD was 259. CRP was 8.7 and went up to 9.3 and today is 4.3. Urinalysis was unremarkable. MICROBIOLOGY: She was negative for stool occult blood. Sputum culture pending. Preliminary blood culture showed no growth after 3 days. RADIOLOGY: Final chest x-ray showed worsening appearance of the lungs with interval progression to a bilateral patchy area of alveolar airspace opacity involving both lungs suggesting multilobar pneumonia. COVID pneumonia should be included in the differential. All other lab and radiology reports are per the EMR. DISCHARGE PLAN: The patient will be discharged to [facility]. She has been intubated. She is being transferred to their Intensive Care Unit. At this point, she is stable. Her vital signs are within normal limits. After discharge from [facility], she is to followup with Dr. Kar Pringle. All of her records have been sent with her to [facility] in [place] including her medications. DISCHARGE MEDICATIONS: 1. Pantoprazole. 2. Prednisone. 3. Requip. 4. Sennosides. 5. Xarelto. 6. Tramadol. 7. Gabapentin. 8. Lorazepam. 9. Allopurinol. 10. Citalopram. 11. Cyclobenzaprine. 12. Lunesta. 13. Metoprolol. 14. Metolazone. 15. Hydrocodone. 16. Albuterol. 17. Align. 18. Dexamethasone. 19. Propofol. 20. Ceftriaxone. 21. Albuterol. 22. Zithromax. [facility][id number] [facility]
== END 2020-08-31 00:11 | disposition short-term general hospital (02) | DRG 871 ==
LOC: ER 05:52 → OBSVTOIN 10:00 → MS 10:00
PROVIDERS: ADMIT Nurse Practitioner Family; ATTEND Nurse Practitioner Acute Care
PROC: BW211ZZ Computerized Tomography (CT Scan) of Abdomen and Pelvis using Low Osmolar Contrast (ICD-10-PCS; 2020-08-27)
PROC: B32T1ZZ Computerized Tomography (CT Scan) of Left Pulmonary Artery using Low Osmolar Contrast (ICD-10-PCS; 2020-08-27)
PROC: B32S1ZZ Computerized Tomography (CT Scan) of Right Pulmonary Artery using Low Osmolar Contrast (ICD-10-PCS; 2020-08-27)
PROC: 30233N1 Transfusion of Nonautologous Red Blood Cells into Peripheral Vein, Percutaneous Approach (ICD-10-PCS; principal; 2020-08-28)
PROC: 0BH17EZ Insertion of Endotracheal Airway into Trachea, Via Natural or Artificial Opening (ICD-10-PCS; 2020-08-31)
PROC: 5A1935Z Respiratory Ventilation, Less than 24 Consecutive Hours (ICD-10-PCS; 2020-08-31)
DX: A41.89 Other specified sepsis (principal); U07.1 COVID-19; J12.89 Other viral pneumonia; J96.01 Acute respiratory failure with hypoxia; J44.0 Chronic obstructive pulmonary disease with (acute) lower respiratory infection; J44.1 Chronic obstructive pulmonary disease with (acute) exacerbation; I50.32 Chronic diastolic (congestive) heart failure; I13.0 Hypertensive heart and chronic kidney disease with heart failure and stage 1 through stage 4 chronic kidney disease, or unspecified chronic kidney disease; I48.20 Chronic atrial fibrillation, unspecified; E83.51 Hypocalcemia; N18.9 Chronic kidney disease, unspecified; E03.9 Hypothyroidism, unspecified; G20 Parkinson's disease; M19.90 Unspecified osteoarthritis, unspecified site; M51.36 Other intervertebral disc degeneration, lumbar region; Z79.01 Long term (current) use of anticoagulants; Z95.5 Presence of coronary angioplasty implant and graft; Z79.891 Long term (current) use of opiate analgesic; Z79.52 Long term (current) use of systemic steroids; Z79.899 Other long term (current) drug therapy